=== PATIENT | female | born 1950 | race Caucasian/White ===

== ENCOUNTER → 2017-07-03 | Outpatient (CLI) | payer MEDICARE ==
[~2017-07-03] MED LIST: ALDACTAZIDE PO; BUSPAR PO; CALCIUM 500 + D1 TAB PO; CIPRO PO; HCTZ; KLONOPIN PO; LISINOPRIL PO; LYRICA; MICRO-K; MOBIC PO; NAPROXEN PO; NEURONTIN PO; NEXIUM PO; PHENERGAN PO; RITE-AID PHARMACY; SKELAXIN PO; SYNTHROID PO; TYLOX 5/500 CAP1 CAP PO; ULTRAM PO; VICODIN PO
--- NOTE | ~2017-07-03 | MY29 ---
[facility] RADIOLOGY TEXT RESULTS PATIENT: JOSE LIRA LOCATION: [facility] : 46 UNIT #: [id number] AGE: [address]: Fabrizio Montez MD SEX: F ORDER DR: [id number] [facility] [address] [place], [place] [address] [id number] O MR#: [id number] Acc #: [id number] NAME: JOSE LIRA : 1950 SEX: F STUDY DATE/TIME: 07/03/2017 9:55 UNIT: [facility] ROOM: STUDY DESCRIPTION: MY KAYY SCREENING W/ CAD BILAT Attending Physician: Fabrizio Montez M.D. Referring Physician: Fabrizio Montez M.D. Ordering Physician: Fabrizio Montez M.D. Primary Care Physician: Fabrizio Montez M.D. MEDICAL IMAGING REPORT This report is preliminary unless electronic signature is present EXAM Digital screening mammogram 07/03/2017 HISTORY 66-year-old woman positive family history, maternal aunt. Interim weight loss. Annual screen. COMPARISON Mammograms normal report, 06/28/2016 FINDINGS Digital imaging of each breast was completed utilizing a two-view examination of each breast in craniocaudal and mediolateral-oblique projections. Review and interpretation of digital mammograms include a second review in conjunction with FDA-approved CAD device. There is a normal parenchymal presentation bilaterally consistent with the patient's age. There are no breast masses imaged and no parenchymal asymmetry is visualized. There are no suspicious microcalcifications and I see no focal architectural disturbance. IMPRESSION Negative screening digital mammogram. One-year followup recommended. Patients over the age of 40 are entered into a reminder system with target due date for the next mammogram. A result letter will also be sent to the patient. BIRADS: 1 Negative Dictated by... Ajith Alvarez M.D. [facility] RADIOLOGY TEXT RESULTS PATIENT: JOSE LIRA LOCATION: [facility] : 46 UNIT #: [id number] AGE: [address]: Fabrizio Montez MD SEX: F ORDER DR: THIS IS AN ELECTRONICALLY VERIFIED REPORT Ajith Alvarez M.D. at 07/03/2017 3:13 PM JINNY/joseph TD: 07/03/2017 14:50 JOB #: [id number] MEDICAL IMAGING REPORT Page 1 of 1 COPY
== END | disposition home or self-care (01) ==
LOC: CWCC 09:21
DX: Z12.31 Encounter for screening mammogram for malignant neoplasm of breast (principal); Z80.3 Family history of malignant neoplasm of breast
CPT/HCPCS: G0202